=== PATIENT | male | born 1980 | race Two or more races ===

== ENCOUNTER 2019-04-28 12:09 | Emergency (ER) | payer SELFPAY ==
[~2019-04-28] VITALS: Ht 167.6 cm; Wt 73.0 kg
[2019-04-28 12:18] VITALS: BP 116/79
[2019-04-28] MEDS ORDERED: TETANUS, DIPHTHERIA, PERTUSSIS VAC/PF 0.5ML (>7YR OLD) IM ONE (13:00)
[2019-04-28] MEDS ORDERED: LIDOCAINE HCL 1% 20ML VIAL (Pyxis) INJ INFIL ONE (13:00)
[2019-04-28] MEDS ORDERED: ACETAMINOPHEN 325MG TABLET PO ONE (13:00)
[2019-04-28] MEDS ORDERED: CEPHALEXIN 250MG CAPSULE PO ONE (14:45)
== END 2019-04-28 16:00 | disposition home or self-care (01) ==
LOC: ER 12:09
DX: S81.812A Laceration without foreign body, left lower leg, initial encounter (principal); W01.0XXA Fall on same level from slipping, tripping and stumbling without subsequent striking against object, initial encounter; Y93.89 Activity, other specified; Y92.89 Other specified places as the place of occurrence of the external cause; Y99.8 Other external cause status; E11.9 Type 2 diabetes mellitus without complications; E78.00 Pure hypercholesterolemia, unspecified; I10 Essential (primary) hypertension; Z98.890 Other specified postprocedural states
CPT/HCPCS: 12002; 73590; 73610; 90471; 90715; 99284; J3490

== ENCOUNTER 2019-05-01 08:48 | Emergency (ER) | payer SELFPAY ==
[~2019-05-01] VITALS: Ht 162.6 cm; Wt 64.0 kg
[2019-05-01 08:55] VITALS: BP 129/87
[2019-05-01] MEDS ORDERED: BACITRACIN ZINC OINT UDPKT TOP ONE (09:15)
== END 2019-05-01 09:51 | disposition home or self-care (01) ==
LOC: ER 08:48
DX: Z48.00 Encounter for change or removal of nonsurgical wound dressing (principal); E11.9 Type 2 diabetes mellitus without complications; I10 Essential (primary) hypertension; E78.00 Pure hypercholesterolemia, unspecified
CPT/HCPCS: 99283

== ENCOUNTER 2019-05-04 09:41 | Emergency (ER) | payer SELFPAY ==
[~2019-05-04] VITALS: Ht 162.6 cm; Wt 64.0 kg
[2019-05-04 10:35] VITALS: BP 132/78
== END 2019-05-04 11:21 | disposition home or self-care (01) ==
LOC: ER 09:41
DX: Z48.00 Encounter for change or removal of nonsurgical wound dressing (principal); E11.9 Type 2 diabetes mellitus without complications; E78.00 Pure hypercholesterolemia, unspecified; I10 Essential (primary) hypertension
CPT/HCPCS: 99281

== ENCOUNTER 2019-05-09 08:35 | Emergency (ER) | payer SELFPAY ==
[~2019-05-09] VITALS: Ht 157.5 cm; Wt 67.0 kg
[2019-05-09 09:31] VITALS: BP 110/58
== END 2019-05-09 11:32 | disposition home or self-care (01) ==
LOC: ER 08:54
DX: L03.116 Cellulitis of left lower limb (principal); I10 Essential (primary) hypertension; E78.00 Pure hypercholesterolemia, unspecified; E11.9 Type 2 diabetes mellitus without complications
CPT/HCPCS: 99281